=== PATIENT | male | born 1980 | race Caucasian/White ===

== ENCOUNTER 2021-07-27 17:02 | Observation (INO) | payer SELFPAY ==
[2021-07-27 17:22] VITALS: BP 161/83; PULSE 96; RESP 18; TEMP 36.7; O2SAT 100; BMI 25.1
--- NOTE | 2021-07-27 17:45 | CTR_ITS ---
PROCEDURE INFORMATION: Exam: CT Head Without Contrast Exam date and time: 07/27/2021 5:45 PM Age: 40 years old Clinical indication: Psychosis or psychotic disorder; Unspecified; Additional info: Psychosis. Hearing voices, refusing to eat TECHNIQUE: Imaging protocol: Computed tomography of the head without contrast. Radiation optimization: All CT scans at this facility use at least one of these dose optimization techniques: automated exposure control; mA and/or kV adjustment per patient size (includes targeted exams where dose is matched to clinical indication); or iterative reconstruction. COMPARISON: No relevant prior studies available. RADIATION DOSE METRICS: Total DLP (mGy-cm): 872.45 FINDINGS: Brain: Normal. No hemorrhage. Unremarkable white matter. No mass effect. Cerebral ventricles: No ventriculomegaly. Paranasal sinuses: Visualized sinuses are unremarkable. No fluid levels. Mastoid air cells: Visualized mastoid air cells are well aerated. Bones/joints: Unremarkable. No acute fracture. Soft tissues: Unremarkable. CT/CT head wo con* [id number] IMPRESSION: No acute intracranial abnormality.
--- NOTE | 2021-07-27 18:17 | ED_ITS ---
HPI - General Adult General: Chief complaint: Psychiatric Symptoms Stated complaint: Severe dehydration Time Seen by Provider: 07/27/21 17:36 History of Present Illness: HPI narrative: HPI: [40]yo patient w/ hx of psychosis BIBA for acute psychosis and not eating. Patient thinks the water is poisoned. for On arrival, the patient is AAOx3 and cooperative with my evaluation. No focal complaints of chest pain, shortness of breath, palpitations, N/V, focal GI/ complaints. Currently denies SI/HI. No complaints of hallucinations. Onset: ongoing Duration: ongoing Location: home Severity: severe Review of Systems Narrative: Constitutional: No fever, no chills. HEENT: No vision changes CV: No chest pain, no palpitations PULM: No productive cough, no dyspnea. GI: No abdominal pain, no N/V/D. : No dysuria MSKEL: No muscle pain SKIN: No new rashes, no lesions. NEURO: No headache, no focal weakness. HEME: No visible bruises PSYCH: Normal mood, +psychosis Physical Exam Narrative: EXAM NARRATIVE: Head: Atraumatic Eyes: PERRL, conjunctiva without injection, eyes tracking ENT: Mucous membrane moist NECK: Supple without lymphadenopathy LUNGS: LCTAB CV: RRR ABDOMEN: Soft, nontender EXTREMITY: Normal ROM SKIN: No rash or erythema NEURO: Awake and alert. No focal weakness PSYCH: Cooperative mood and affect. Course Vital Signs: Vital signs: Vital Signs Temperature 98.0 F 07/27/21 17:22 Pulse Rate 96 07/27/21 17:22 Respiratory Rate 18 07/27/21 17:22 Blood Pressure 161/83 07/27/21 17:22 Pulse Oximetry 100 07/27/21 17:22 MDM - General Adult [facility] Narrative: Medical decision making narrative: [40]yo patient w/ hx of psychosis presenting for acute psychosis and decreased appetite. HDS, exam within normal limit Thoughts are not linear and not organized. +Auditory hallucionation. No SI or HI. Clinically the patient displays no overt toxidrome; they are well appearing, with low suspicion for toxic ingestion given history and exam. Symptoms unlikely 2/2 anemia, hypothyroidism, infection, or ICH. Workup: CBC, CMP, Lipase, salicylate/tylenol, UDS, TSH/free T4, CT head Lab findings: wnl [7:30pm] On reassessment, labs and workup wnl. Patient is hemodynamically stable with no acute medical complaints. Case discussed with psychiatric provider Dr. Bowman at [facility] psych inpatient with recommendation for admission Disposition: Psych Discharge Plan Discharge Patient Disposition: Admitted As Inpatient Clinical Impression: Psychosis Condition: Stable Coding Level of Care Code ED Human Services Supervisor for Giovanni Bray
[2021-07-27 19:16] VITALS: BP 144/96; PULSE 122; RESP 17; O2SAT 99
[2021-07-27 20:55] LABS: Amphetamines Screen Urine Negative (Negative); Barbiturates Screen Urine Negative (Negative); Benzodiazepines Screen Urine Negative (Negative); Cocaine Screen Urine Negative (Negative); Opiate Screen Urine Negative (Negative); PCP Screen Urine Negative (Negative); THC Screen Urine Negative (Negative)
[2021-07-27 21:13] LABS: Basophils # 0.1 10^3/uL (0.0-0.1); Basophils % 0.8 %; Eosinophils # 0.1 10^3/uL (0.0-0.8); Eosinophils % 1.3 %; Hematocrit 49.6 % (42.0-52.0); Hemoglobin 16.3 g/dL (11.7-16.6); Lymphocytes # 1.6 10^3/uL (0.8-4.8); Lymphocytes % 24.5 %; Mean Corpuscular HGB Conc 32.9 g/dL (30.0-36.0); Mean Corpuscular Hemoglobin 30.6 pg (28.0-34.0); Mean Corpuscular Volume 93.2 fl (80-94); Mean Platelet Volume 10.7 fL (7.4-10.4); Monocytes # 0.4 10^3/uL (0.2-0.9); Monocytes % 6.1 %; Neutrophils # 4.29 10^3/uL (1.8-7.7); Neutrophils % 67.1 %; Nucleated Red Blood Cells % 0 %; Platelet Count 202 10^3/cmm (130-400); Red Blood Count 5.32 10^6/uL (4.1-5.3); Red Cell Distribution Width 11.9 % (12.1-15.1); White Blood Count 6.4 10^3/uL (4.0-10.0)
[2021-07-27 21:22] VITALS: BP 131/82; PULSE 74; RESP 18; TEMP 36.7; O2SAT 99
[2021-07-27 21:33] VITALS: BP 125/86; PULSE 85; RESP 15; TEMP 37.1; O2SAT 99
[2021-07-27 21:46] LABS: Blood Urea Nitrogen 5 mg/dL (6-20); Calcium 8.7 mg/dL (8.5-10.5); Carbon Dioxide 26 mmol/L (22-29); Chloride 103 mmol/L (98-107); Free T4 Free Thyroxine 1.17 ng/dL (0.82-1.77); Glomerular Filtration Rate 123.7 mL/min (90-130); Glucose 96 mg/dL (65-115); Osmolality Calculated 287 mOsm/kg (285-295); Sodium 140 mmol/L (136-145); Thyroid Stimulating Hormone 1.07 uIU/mL (0.27-4.20)
[2021-07-27 21:48] LABS: Acetaminophen < 5.0 ug/mL (10-30); Salicylate < 0.3 mg/dL (3-10)
[2021-07-27 21:58] VITALS: BP 125/85; PULSE 72; RESP 20; TEMP 36.8; O2SAT 99
--- NOTE | 2021-07-28 12:04 | P.SS_ITS ---
Short Stay Summary Providers Date of Admit/Discharge: 07/28/21 Attending Provider: Js Bowman MD Chief Complaint: Severe dehydration HPI History of Present Illness Kamaljit Falcon is a 40 year old male who was admitted to the neuropsychiatry unit from the emergency department with the following report: HPI - General Adult General: Chief complaint: Psychiatric Symptoms Stated complaint: Severe dehydration Time Seen by Provider: 07/27/21 17:36 History of Present Illness: HPI narrative: HPI: [40]yo patient w/ hx of psychosis BIBA for acute psychosis and not eating. Patient thinks the water is poisoned. for On arrival, the patient is AAOx3 and cooperative with my evaluation. No focal complaints of chest pain, shortness of breath, palpitations, N/V, focal GI/ complaints. Currently denies SI/HI. No complaints of hallucinations. Onset: ongoing Duration: ongoing Location: home Severity: severe Review of Systems Narrative: Constitutional: No fever, no chills. HEENT: No vision changes CV: No chest pain, no palpitations PULM: No productive cough, no dyspnea. GI: No abdominal pain, no N/V/D. : No dysuria MSKEL: No muscle pain SKIN: No new rashes, no lesions. NEURO: No headache, no focal weakness. HEME: No visible bruises PSYCH: Normal mood, +psychosis Physical Exam Narrative: EXAM NARRATIVE: Head: Atraumatic Eyes: PERRL, conjunctiva without injection, eyes tracking ENT: Mucous membrane moist NECK: Supple without lymphadenopathy LUNGS: LCTAB CV: RRR ABDOMEN: Soft, nontender EXTREMITY: Normal ROM SKIN: No rash or erythema NEURO: Awake and alert. No focal weakness PSYCH: Cooperative mood and affect. Course Vital Signs: Vital signs: Vital Signs Temperature 98.0 F 07/27/21 17:22 Pulse Rate 96 07/27/21 17:22 Respiratory Rate 18 07/27/21 17:22 Blood Pressure 161/83 07/27/21 17:22 Pulse Oximetry 100 07/27/21 17:22 MDM - General Adult [facility]DM Narrative: Medical decision making narrative: [40]yo patient w/ hx of psychosis presenting for acute psychosis and decreased appetite. HDS, exam within normal limit Thoughts are not linear and not organized. +Auditory hallucionation. No SI or HI. Clinically the patient displays no overt toxidrome; they are well appearing, with low suspicion for toxic ingestion given history and exam. Symptoms unlikely 2/2 anemia, hypothyroidism, infection, or ICH. Workup: CBC, CMP, Lipase, salicylate/tylenol, UDS, TSH/free T4, CT head Lab findings: wnl [7:30pm] On reassessment, labs and workup wnl. Patient is hemodynamically stable with no acute medical complaints. Case discussed with psychiatric provider Dr. Bowman at [facility] psych inpatient with recommendation for admission Disposition: Psych He was sent to the psychiatry unit for definitive treatment but upon arrival it was realized that he was actually in the custody of the police. The police could not release him from their custody because he has a hearing tomorrow morning. Outplacement would have to stay here with him if he continued to state in the hospital. He was medically treated and cleared by the emergency department. Nursing staff reported that they suspected that his hallucinations and other psychiatric symptoms were fabricated in order to get out of nursing home and get out of the hearing tomorrow. The authority said that he faces about a 7- year sentence. Since he is medically cleared by the emergency department in the custody of the police, he should be safe for discharge. Home Meds/Allergies Home Medications and Allergies Home Medications Medication Instructions Recorded Confirmed Type No Known Home Medications 07/27/21 07/27/21 History Allergies Allergy/AdvReac Type Severity Reaction Status Date / Time No Known Allergies Allergy Verified 07/27/21 17:22 Vitals/I&O/Wt Last Vital Signs Temp 98.3 F 07/27/21 21:58 Pulse 72 07/27/21 21:58 Resp 20 H 07/27/21 21:58 BP 125/85 07/27/21 21:58 Pulse Ox 99 07/27/21 21:58 Weight last 48 hrs Weight 79.379 kg Hospital Course Hospital Course He was only on her unit for about 30 minutes. Evidently the emergency department did not understand that he was in police custody and must be returned to the police. Discharge Summary He was only on her unit for about 30 minutes. Evidently the emergency department did not understand that he was in police custody and must be returned to the police. Not given any medications. We provided no treatment. If he had remained on the unit he would have to have a police department secretary at his side. Since he had been medically cleared and his psychiatric symptoms were not dangerous to himself or others he was released back to the police custody. SSS Data Data Completed and Pending: Completed Studies During Hospitalization Category Date Time Status CT head wo con* [id number] Urgent Cat Scan 07/27/21 17:45 Completed Diagnoses at Discharge Discharge Diagnosis (1) Psychosis: Status: Acute Discharge Plan Discharge Patient Disposition: Home Condition: Stable Prescriptions: No Action No Known Home Medications RF: 0 Discharge Orders: Discharge Order (Routine); Ordered 07/28/21 Ordered By: Js Bowman Referrals: Js Bowman MD [[place]] - Discharge Diet: Regular Discharge Activity: Resume usual activity Patient Instructions: Opioid Safety Attestations Medical Necessity Statement*: Psychiatric hospitalization is not warranted at this time due to being in police custody. Time Spent in Patient Care*: less than 30 min Specific Discharge Activities: Other discharge activites (optional): Patient was not seen by this provider. He was contacted by telephone and told by security that he would need a police department secretary be with him continuously during his stay and that did not seem warranted his condition. Quality Metrics Clinical Quality Measures: During this hospital stay, did patient experience: None Coding Level of Care Code Acute Apartment Maintenance Manager for Chg Fwd Diagnoses Psychosis F29
== END 2021-07-27 22:00 | disposition home or self-care (01) ==
LOC: ER 18:12 → NP 21:25
PROVIDERS: Admitting Provider Psychiatry & Neurology Psychiatry; Emergency Provider Emergency Medicine; Visit Provider Psychiatry & Neurology Psychiatry
DX: F29 Unspecified psychosis not due to a substance or known physiological condition (principal)
CPT/HCPCS: 36415; 70450; 80048; 80306; 80307; 84439; 84443; 85025; 99285; G0378

== ENCOUNTER → 2023-05-18 15:35 | Outpatient (BNVA) | payer OTHER, SELFPAY | PROVIDERS: Referring Provider Registered Nurse; Visit Provider Specialist | DX: M17.12 Unilateral primary osteoarthritis, left knee | CPT/HCPCS: 73560; 73565 ==